=== PATIENT | female | born 1985 | race Caucasian/White ===

== ENCOUNTER 2018-07-18 05:43 | Day surgery (SDC) | payer OTHER ==
[2018-07-18] MEDS ORDERED: MIDAZOLAM 1 MG/ML 2 ML INJ ×2 (07:21→07:42)
[2018-07-18] MEDS ORDERED: ONDANSETRON 4 MG INJ (07:21)
[2018-07-18] MEDS ORDERED: GLYCOPYRROLATE 0.4 MG INJ ×2 (07:21→10:10)
[2018-07-18] MEDS ORDERED: CEFAZOLIN 1 GM INJ (07:21)
[2018-07-18] MEDS ORDERED: FENTAnyl 50 MCG/ML VIAL (07:21)
[2018-07-18] MEDS ORDERED: PROPOFOL 20 ML (07:21)
[2018-07-18] MEDS ORDERED: NEOSTIGMINE 3 MG/3 ML SYRINGE ×2 (07:21→10:10)
[2018-07-18] MEDS ORDERED: ROCURONIUM 50 MG INJ (07:21)
[2018-07-18] MEDS ORDERED: DEXAMETHASONE 4 MG/ML 5 ML INJ (07:22)
[2018-07-18] MEDS ORDERED: ROPIVACAINE 0.5 % 30 ML VIAL (07:22)
[2018-07-18] MEDS ORDERED: LABETALOL HCL 20MG INJ IV (07:30)
[2018-07-18] MEDS ORDERED: ALBUTEROL 0.083% (NEB) 2.5 MG/3 ML AMP HHN (07:30)
[2018-07-18] MEDS ORDERED: FENTAnyl 50 MCG/ML VIAL IV ×2 (07:30)
[2018-07-18] MEDS ORDERED: TRIMETHOBENZAMIDE 100 MG/ML VIAL IM (07:30)
[2018-07-18] MEDS ORDERED: hydrALAzine 20 MG INJ IV (07:30)
[2018-07-18] MEDS ORDERED: DIPHENHYDRAMINE 50 MG INJ IV (07:30)
[2018-07-18] MEDS ORDERED: OXYCODONE/ACETAMINOPHEN (5/325) TAB PO ×2 (07:30)
[2018-07-18] MEDS ORDERED: IPRATROPIUM (NEB) 0.5 MG/2.5 ML AMP HHN (07:30)
[2018-07-18] MEDS ORDERED: HYDROmorphONE 1 MG/5 ML IV SYRINGE IV (07:30)
[2018-07-18] MEDS ORDERED: EPHEDrine SULFATE 50 MG/5 ML SYG IV (07:30)
[2018-07-18] MEDS ORDERED: MIDAZOLAM 1 MG/ML 2 ML INJ IV (07:30)
[2018-07-18] MEDS: POLYMYXIN/BACITRACIN 1L IRRIG (08:24)
[2018-07-18] MEDS: morphine SULFATE/PF (10 MG/10 ML) INJ (09:15)
[2018-07-18] MEDS: EPINEPHrine 1 MG/ML 30 ML INJ IRR (09:15)
[2018-07-18] MEDS: ONDANSETRON 4 MG INJ IV (10:39)
[2018-07-18] MEDS: MEPERIDINE 25 MG INJ IV (10:39)
[2018-07-18] MEDS: HYDROmorphONE 1 MG/5 ML IV SYRINGE IV ×2 (10:40→12:33)
[2018-07-18] MEDS: FENTAnyl 50 MCG/ML VIAL IV (10:40)
[2018-07-18] MEDS ORDERED: HYDROCODONE/APAP (5/325) TAB PO (11:00)
[2018-07-18] MEDS: HYDROCODONE/APAP (5/325) TAB PO (11:52)
== END 2018-07-18 15:46 | disposition home or self-care (01) ==
LOC: SDS 05:43
DX: S83.512D Sprain of anterior cruciate ligament of left knee, subsequent encounter (principal); M23.252 Derangement of posterior horn of lateral meniscus due to old tear or injury, left knee; X58.XXXD Exposure to other specified factors, subsequent encounter; E11.9 Type 2 diabetes mellitus without complications
CPT/HCPCS: 29881; 97162

== ENCOUNTER 2018-12-26 05:29 | Day surgery (SDC) | payer OTHER ==
[2018-12-26] MEDS ORDERED: EPINEPHrine 1 MG/ML 30 ML INJ ZFS (07:00)
[2018-12-26] MEDS ORDERED: CEFAZOLIN 1 GM INJ (07:40)
[2018-12-26] MEDS ORDERED: HYDROmorphONE 2 MG/ML SYG (07:40)
[2018-12-26] MEDS ORDERED: MIDAZOLAM 1 MG/ML 2 ML INJ ×2 (08:16→10:18)
[2018-12-26] MEDS ORDERED: ONDANSETRON 4 MG INJ (08:17)
[2018-12-26] MEDS ORDERED: SUGAMMADEX SODIUM 200 MG/2 ML VIAL IV (08:17)
[2018-12-26] MEDS ORDERED: ROCURONIUM 50 MG INJ (08:17)
[2018-12-26] MEDS ORDERED: PROPOFOL 20 ML (08:17)
[2018-12-26] MEDS ORDERED: hydrALAzine 20 MG INJ IV (08:30)
[2018-12-26] MEDS ORDERED: HYDROmorphONE 1 MG/5 ML IV SYRINGE IV (08:30)
[2018-12-26] MEDS ORDERED: LABETALOL HCL 20MG INJ IV (08:30)
[2018-12-26] MEDS: morphine SULFATE/PF (10 MG/10 ML) INJ (08:52)
[2018-12-26] MEDS: EPINEPHrine 1 MG/ML 30 ML INJ IRR (08:53)
[2018-12-26] MEDS: MEPERIDINE 25 MG INJ IV (10:13)
[2018-12-26] MEDS: ONDANSETRON 4 MG INJ IV (10:14)
[2018-12-26] MEDS: HYDROmorphONE 1 MG/5 ML IV SYRINGE IV ×3 (10:15→10:27)
[2018-12-26] MEDS: KETOROLAC 15 MG INJ IV (10:15)
[2018-12-26] MEDS: MIDAZOLAM 1 MG/ML 2 ML INJ IV (10:30)
== END 2018-12-26 13:35 | disposition home or self-care (01) ==
LOC: SDS 05:29
DX: S43.432D Superior glenoid labrum lesion of left shoulder, subsequent encounter (principal); X58.XXXD Exposure to other specified factors, subsequent encounter; M75.102 Unspecified rotator cuff tear or rupture of left shoulder, not specified as traumatic
CPT/HCPCS: 29807; 84703